=== PATIENT | female | born 1975 | race Caucasian/White ===

== ENCOUNTER 2016-12-09 05:45 | Day surgery (SDC) | payer BC ==
[~2016-12-09] VITALS: Ht 160 cm; Wt 97.5 kg
[~2016-12-09 05:45] MED LIST: ALLEGRA ALLERGY60 MG PO; CITALOPRAM HBR40 MG PO; HYDROCHLOROTHIA25 MG PO; MULTI VITAMIN1 EACH PO; OMEPRAZOLE40 MG PO; PANTOPRAZOLE SO40 MG PO; PERCOCET 7.5-31 EACH PO; PROMETHAZINE12.5 M1 PO; TOPROL XL100 MG PO; VITAMIN D2000 UNI1 PO
[2016-12-09] MEDS ORDERED: LISINOPRIL10 MG PO (06:00)
--- NOTE | 2016-12-09 10:28 | NUR ---
12/09/16 1028 Hakeem Crain JAW HELD OPEN UNTIL 1025 WHEN THE PT WAS MAINTAINING HER OWN AIRWAY.
--- NOTE | 2016-12-09 12:00 | NUR ---
PT TO FLOOR VIA GURNEY. NAUSEOUS WITH MOVEMENT. LARGE EMESIS ON ARRIVAL TO ROOM. GIVEN 4 MG ZOFRAN. VAG PACKING IN PLACE. CONT PULSE OX PLACED. 2 L O2 NC IN PLACE. SATS 98%. PT SETTLED IN BED. SCOPE SITES TO ABD INTACT PT COMPLAINS OF PAIN. UNABLE TO RATE. FALLS ASLEEP IMMEDIATELY. SATS DECREASE TO 84% O2 INCREASED TO 3, 4, THEN 5 L. SATS INCREASE TO 88%. OXYMASK APPLIED. SATS INCREASE TO 94%.
--- NOTE | 2016-12-09 12:26 | NUR ---
DR GERARDO IN TO SEE THE PATIENT AT THIS TIME, PATIENT STATES THAT PAIN IS AT A 8/10, 2MG OF MORPHINE GIVEN IV. PATIENT REMAINS ON 5L OF OXYGEN PER OXYMASK, RT ASKED TO COME IN AND CHECK THE PATIENT FOR A BIPAP.
--- NOTE | 2016-12-09 13:03 | NUR ---
PT SLEEPING IN BED. WAKES BRIEFLY FOR VITALS. FOLLOWS DIRECTIONS, IMMEDIATELY FALLS BACK ASLEEP. RT IN TO APPLY BIPAP.
--- NOTE | 2016-12-09 14:22 | NUR ---
PT RESTING IN BED. WAKES EASILY. BIPAP IN PLACE. SATS 98% ON 32% FIO2. PT COMPLAINS OF PAIN. GIVEN 4 MG MS IV AND SCHEDULED IBUPROFEN WITH CRACKERS AND JELLO. NC IN PLACE WHILE PT EATING. PT VOMITS WATER, JELLO, CRACKERS. GIVEN REGLAN IV. FAMILY AT BEDSIDE. TO CALL IF PT FALLS ASLEEP FOR BIPAP. SATS 99% ON 2 L NC AT THIS TIME. CALL LIGHT IN REACH. ICE CHIPS GIVEN FOR DRY MOUTH. VAG PACK IN PLACE. NO BLEEDING NOTED.
--- NOTE | 2016-12-09 14:37 | NUR ---
PT BACK ON BIPAP FOR NAP. FAMILY REMAINS AT BEDSIDE. PT DENIES NAUSEA AT THIS TIME.
--- NOTE | 2016-12-09 14:57 | NUR ---
PT NAUSEOUS AND LIGHT HEADED. HEAD OF BED LOWERED. BIPAP MASK OFF. NC IN PLACE. MD NOTIFIED OF UPDATE AND REQUEST TO GIVE MORE ZOFRAN RATHER THAN PHENERGAN DUE TO SEDATING EFFECT. ORDER RECIEVED.
--- NOTE | 2016-12-09 16:00 | NUR ---
PT AWAKE VISITING WITH FAMILY. RATES PAIN 4/10. STATES FEELS MUCH BETTER AFTER NAP. OXYMASK IN PLACE AT 3 L. SATS 99%. TITRATED TO 2 L. PT DENIES NAUSEA AT THIS TIME. EATING ICE CHIPS. NO BLEEDING NOTED. CALL LIGHT IN REACH. PT DENIES NEEDS.
--- NOTE | 2016-12-09 17:49 | NUR ---
PT TO FLOOR THIS AM. BIPAP WHEN SLEEPING TO KEEP SATS >90%. SATS IMPROVED THROUGHOUT SHIFT. ON 2 L OXYMASK AT THIS TIME. CONT PULSE OX IN PLACE. VAG PACKING, RUSSO IN PLACE. SCOPE SITES X 3 ON ABD. COVERED WITH BANDAIDS. SMALL AMOUNT DRAINAGE NOTED. NO SIGNIFICANT CHANGE TO DRAINAGE. EMESIS X 2. MEDICATED WITH ZOFRAN X 2, REGLAN X 1. AVOIDED PHENERGAN DUE TO SEDATION LEVEL. PT MUCH MORE ALERT SHIFT PROGRESSED. FAMILY AT BEDSIDE. IV FLUIDS INFUSING. RECIEVED IV MORPHINE X 2. PO PAIN MEDS HELD AT THIS TIME DUE TO NAUSEA. ADVISED PT TO TAKE PO VERY SLOWLY. TOLERATING ICE CHIPS AND SMALL SIPS OF WATER AT THIS TIME.
--- NOTE | 2016-12-09 19:38 | NUR ---
RECIEVED REPORT FROM DAY SHIFT RN. PATIENT IS RESTING IN BED RESTING. PATIENTS DAUGHTER IS AT THE BEDSIDE. PATIENT IS ON 2L VIA OXYMASK. PATIENT DENIES ANY PAIN OR NAUSEA AT THIS TIME. PATIENT DEENIES ANY NEEDS AT THIS TIME. CALL LIGHT IS WITHIN REACH.
--- NOTE | 2016-12-09 20:58 | NUR ---
PATIENT ASSESMENT COMPLETED. PATIENTS EVENING MEDICATIONS GIVEN PER ORDER. PATIENT HAS X3 LAP SITES WITH SCANT DRAINAGE. PATIENT RATES PAIN AT 4/10. PATIENT GIVEN SCHEDULED MOTRIN. PATIENT DENIES ANY FURTHER NEED FOR PAIN MEDICATION. PATIENT HAS RUSSO IN PLACE URINE OUTPUT IS QS. PATIENTS DAUGHTER IS AT BEDISE AND STAYING THE NIGHT. PATIENT DENIES ANY FURTHER NEEDS. CALL LIGHT IS WITHIN REACH.
--- NOTE | 2016-12-09 21:41 | NUR ---
PATIENT GIVEN PRN NAUSEA MEDICATION PER ORDER. PATIENT RATES PAIN NOW AT A 2/10. PATIENT IS REQUESTIN G TO BE PLACED ON THE BIPAP. CALLED RT TO PLACE PATIENT ON THE BIPAP.
--- NOTE | 2016-12-09 22:04 | NUR ---
RT IN THE ROOM. PATIENT PLACED ON BIPAP. PATIENT DENIES ANY FURTHER NEEDS CALL LIGHT IN REACH.
--- NOTE | 2016-12-10 00:33 | NUR ---
PATIENT IS RESTING IN BED WITH EYES CLOSED. PATIENTS IS ON A PULSE OX AND READINGS ARE WNL. PATIENT CONTINUES TO WEAR BIPAP. CALL LIGHT IS WITHIN REACH.
--- NOTE | 2016-12-10 02:20 | NUR ---
PATIENTS VITALS TAKEN AND RECORDED. PATIENT CONTINUES TO WEAR CPAP. PATIENT DENIES ANY PAIN AT THIS TIME. PATIENT DENIES ANY NEEDS CALL LIGHT IN REACH.
--- NOTE | 2016-12-10 04:47 | NUR ---
PATIENTS IV FLUID REPLENISHED. PATIENT DENIES ANY PAIN OR NAUSEA. PATIENT HAS REMOVED CPAP. PATIENT STATED "IT WAS STARTING TO BOTHER ME" PATIENT DENIES ANY FURTHER NEEDS CALL LIGHT IN REACH.
--- NOTE | 2016-12-10 05:59 | NUR ---
PATIENT RESTED WELL THROUGHOUT THE SHIFT. PATIENT WORE CPAP FOR THE MAJORITY OF THE SHIFT. PATIENT IS ON 2L VIA OXYMASK WHEN SLEEPING. PATIENT IS ON A PULSE OX. PATIENT HAS X3 LAP SITES THAT ARE COVERED AND HAVE MINIMAL DRAINAGE. PATIENT ONLY RECIEVED SCHEDULED PAIN MEDICATIONS. PATIENT RECEIVED X1 NAUSEA MEDICATION. PATIEN IS AAOX3 AND USES CALL LIGHT APPRIOPRIATELY.
--- NOTE | 2016-12-10 06:19 | NUR ---
PATIENT GIVEN MORNING MEDICATION PER ORDER. PATIENT RATES PAIN AT A 2/10. PATIENT DENIES ANY NAUSEA. PATIENT IS ON 2L VIA OXYMASK. PULSE OX READINGS ARE WNL. PATIENT DENIES ANY NEEDS AT THIS TIME. CALL LIGHT IS WITHIN REACH.
--- NOTE | 2016-12-10 07:30 | NUR ---
REPORT RECEIVED FROM STAPLE SIDE LASTER RN USING 5 P'S. PT RATES PAIN 4/10. DENIES NEED FOR PAIN MED AT THIS TIME. FAMILY AT BEDSIDE. IV FLUIDS INFUSING WITHOUT DIFFICUTLY. SCDS, KARAN, VAG PACK IN PLACE. SCOPE SITES INTACT. PT DENIES NEEDS. CALL LIGHT IN REACH.
--- NOTE | 2016-12-10 09:05 | NUR ---
PATIENTS RUSSO CATHATER AND PACKING REMOVED AT THIS TIME.
--- NOTE | 2016-12-10 10:30 | NUR ---
PT UP TO VOID 350 ML + INCONTINENT IN BED. 0 RESIDUAL. MD UPDATED. PLAN FOR DC.
--- NOTE | 2016-12-10 10:38 | NUR ---
PT IS SITTING UP IN BED TALKING WITH DOCTOR. PT WAS ABLE TO VOID AND BLADDER SCAN SHOWED NO RESIDULE.
[2016-12-10] MEDS ORDERED: PERCOCET 5-3251 EACH PO (10:47)
[2016-12-10] MEDS ORDERED: IBUPROFEN800 MG PO (10:47)
--- NOTE | 2016-12-10 11:00 | NUR ---
PT PREPARING FOR DC. SL OUT WNL. PT RATES PAIN 2/10 AFTER PREVIOUS PERCOCET. FAMILY AT BEDSIDE. ASSISTING PT TO GET DRESSED. PT TO CALL WHEN READY.
--- NOTE | 2016-12-12 12:43 | OR ---
[facility] [address], [place] [address] Signed DATE OF SERVICE: 12/09/2016 PREOPERATIVE DIAGNOSES: Excessive frequent menstruation with regular cycle, stress urinary incontinence, uterovaginal prolapse complete. POSTOPERATIVE DIAGNOSES: Excessive frequent menstruation with regular cycle, stress urinary incontinence, uterovaginal prolapse complete, probable adenomyosis. PROCEDURE: Total laparoscopic hysterectomy with bilateral salpingectomy and TVT urethropexy and cystoscopy by Dr. Cramer. SURGEON: Dr. Orozco. INFORMATION SECURITY CONSULTANT: Dr. Cramer. ANESTHESIA: General. ESTIMATED BLOOD LOSS: 150 mL. COMPLICATIONS: None. DRAINS: Ross to bladder. PACKING: AVC infused gauze in vagina. DESCRIPTION OF PROCEDURE: The patient was brought to the operating room, placed in supine position. After adequate general anesthesia was obtained, was placed in dorsal lithotomy position, prepped and draped in usual sterile fashion. A Ross catheter was placed in the bladder. Weighted speculum was placed in the vagina and the anterior lip of the cervix grasped with an Allis clamp. Uterine cavity was sounded to 12 cm. The VCare uterine manipulator was inserted into the uterine fundus, the balloon filled with water and the Allis clamp and weighted speculum were removed. Cervical cap slid up the manipulator and around the cervix and the vaginal cuff slid up and tightened in place holding the cervical cap against the cervix. Sterile glove was then placed over the manipulator so this could be maneuvered abdominally. Attention was then drawn to the abdomen. A small infraumbilical skin incision was made with a scalpel after injecting the area with 0.5% plain Marcaine. Subcutaneous tissue was dissected with Metzenbaum scissors and Electronically Signed By: ROD OROZCO MD 12/12/16 1243 PATIENT NAME: RON DIAZ OPERATIVE REPORT DATE OF : 75 PHYSICIAN: ROD OROZCO MD REPORT #: [id number] REPORT IS CONFIDENTIAL AND NOT TO BE RELEASED WITHOUT AUTHORIZATION [facility] [address], [place] [address] Signed the fascia identified, grasped, hemostats elevated and nicked with Metzenbaum scissors and extended in transverse fashion using Metzenbaum scissors. Retention stitches of 0 Vicryl suture placed above and below the incision. Peritoneum was opened with finger dissection. An S retractor was inserted into the incision and spun in 360 d e gree fashion to confirm entry into the abdomen. The Kirsitn cannula and sleeve were then inserted into the abdomen alongside the S retractor, which was then removed. The sleeve was tied in place with 2 retention stitches and the trocar removed. The laparoscope with video attachment entered the abdomen under direct visualization. Carbon dioxide was used as a distending medium. Above findings were noted. A lateral port was placed on the left side just below the level of the umbilicus. The abdominal wall was t r ansilluminated to avoid any vessels. A small skin incision was made after injecting the area with 0.5% Marcaine and then bladed 5 mm trocar and sleeve entered the abdomen under direct visualization. The trocar was removed, then blunt grasper inserted on t h e right side. On the right side, again the lateral incision was made after injecting the area with 0.5% Marcaine and this incision was a little wider and the area was transilluminated to avoid any vessels. A Veress needle with expandable sleeve was then p l aced through the abdominal wall into the abdomen under direct visualization. The Veress needle was removed. Expandable trocar up to a 10 sleeve was placed through the expandable sleeve stretching the fascia. The trocar was removed and an additional distal blunt grasper inserted. The above findings were again noted. The LigaSure [place] bipolar cautery forceps were used for the most of the dissection. The right fallopian tube was cauterized and cut down the length of the tube and then cut across the tube at the proximal end near the uterus and the tube removed through the right port. The utero-ovarian ligament was cauterized in several places and cut, and the upper pedicle including the round ligament was cauterized and cut in several places. Once reaching t he mid portion of the broad ligament, the anterior and posterior leaves of broad ligament were , cauterized, and cut near the uterus and both sides were extended down the uterus and medially to the midline staying within the area of the cervical cap, which could be palpated in the pelvis around the cervix. The uterine vessels were then exposed and these were cauterized in several places and cut again within the cervical cap and the tissue around the cuff anteriorly and posteriorly was cleared off by cauterizing and cutting down to the level of the vaginal mucosa. [place] forceps were then used on the left side, again cutting the fallopian tube free and then down the length of the tube and then cutting across the tube and pulling the tube out. The utero-ovarian ligament was cauterized in several places and then cut, and upper pedicle including round ligament also cauterized in several places and cut. The broad ligament was opened. The anterior and posterior leaves of the broad ligament were identified, again opened, again individually cauterized and cut with incision extending down around the midline combining with the previous dissection on the right. The uterine vessels were exposed and once visualized were cauterized in several places and cut, again staying within the area of the cervical cap. The loose tissue around the cervical cap was also cauterized and cut down to the level of the vaginal mucosa. The uterus was Electronically Signed By: ROD OROZCO MD 12/12/16 1243 PATIENT NAME: RON DIAZ OPERATIVE REPORT DATE OF : 75 PHYSICIAN: ROD OROZCO MD REPORT #: [id number] REPORT IS CONFIDENTIAL AND NOT TO BE RELEASED WITHOUT AUTHORIZATION [facility] [address], [place] [address] Signed somewhat enlarged and boggy, so there was some difficulty visualizing posteriorly a n d there was some scarring on the right uterosacral ligament near the uterus, and with the peritoneum not dropping as far as desired, so this area was cauterized and cut. It was decided to start on the left side with the dissection of the vaginal wall around the cervix. The Sonicision was brought into operating field and the cervical cap palpated and the Sonicision used to cut the vaginal mucosa within the groove because of difficulty seeing posteriorly on the left side. The incision was started anteriorly a nd brought down posteriorly to the midline posterior cup. Care was taken to avoid the bowel with Sonicision blade. The Sonicision was then moved to the right side and cut from posterior to anterior in the groove of the cervical cap removing the cervix from the vagina. Blunt graspers were used to hold the cervix within the cuff, the gas allowed to escape and attention drawn to the vagina. VCare was removed. The cervix seen in the vagina and this was grasped with an Allis clamp and gently pulled down. The uterus noted to be too big to come out of the vaginal opening without extending the incision, so the uterus was grasped on either side with single-tooth tenacula and Villa scissors used to cut down the middle of the uterus until that it was loose enough that the posterior portion of the uterus could be delivered through the opening and the rest of the uterus then easily followed. The uterus was passed off the table. Sterile glove with sponge inside was placed in the vagina to b e able to re-insufflate the abdomen. Attention was then drawn back to the abdomen. Abdomen was reinflated. The entire pelvis was irrigated, suctioned, and examined, noted to have good hemostasis. The Endo Stitch instrument was then brought into operating field and the first stitch placed in the right uterosacral ligament and into the vaginal mucosa pulled through and then the Endo Stitch then placed through the loop in the end of the doris suture and tightened. Anterior vaginal mucosa at the right angle was then stitched starting in the vaginal mucosa and grasping the vaginal wall, trying to stay away from the bladder by not going too deep. This stitch was placed and the doris suture tightened. The posterior edge was again stitched through the vaginal mucosa anteriorly and then pulled tight and then the anterior mucosa grasped, stitched, and pulled tight. This was continued all the way across to the left uterosacral ligament. At the left uterosacral ligament, care was taken to not go any wider than the uterosacral ligament and to stay shal l ow to avoid the ureter, anteriorly the tissue was grasped in the area of dissection, but not any further back to avoid the bladder. After reaching the left angle, suturing was carried back toward the middle with 2 additional stitches to help lock suture in place, this was more superficial, but through both layers at the same time. Laparoscopic sutures were then used to cut the stitch right against the vaginal mucosa and the needle removed. Entire pelvis was irrigated, suctioned, examined, and noted to have good hemostasis. At this point, all instruments were removed from the abdomen, the gas allowed to escape, and all 3 sleeves removed. The infraumbilical fascia was closed using running stitch of 0 Vicryl suture. The 2 retention stitches were tied Electronically Signed By: ROD OROZCO MD 12/12/16 1243 PATIENT NAME: RON DIAZ OPERATIVE REPORT DATE OF : 75 PHYSICIAN: ROD OROZCO MD REPORT #: [id number] REPORT IS CONFIDENTIAL AND NOT TO BE RELEASED WITHOUT AUTHORIZATION [facility] [address], [place] [address] Signed together for further support of the fascia. The right incision was palpated and noted to have a small fascial defect and no need for stitch, so the 3 skin incisions were closed using 4-0 Vicryl in subcuticular stitches . Cystoscopy was then done by taking the Ross out, placing the 70-degree cystoscope carefully in the urethra and while using sterile water as distending medium, the cystoscope was carefully introduced through the urethra into the bladder. Bladder was partially filled with water. The dome of the bladder and remaining part of the bladder showed no evidence of trauma or stitches or lacerations. Both ureters were identified and urine was noted to come from both orifices without difficulty. The cystoscope was removed. The bladder drained a nd the sleeve then removed from the bladder, Ross catheter placed back into the bladder. The remainder part of the surgery was done by Dr. Cramer. Please see his dictation for the rest of the procedure. At the end of the procedures, the vaginal cuff seem well supported and there was no real cystocele present. The rectocele appeared small and because she had no symptoms with this, it was decided that the posterior repair was not necessary at this time, so the vagina was packed with AVC gauze. PREOPERATIVE FINDINGS: Cervix thick, closed. Uterus upper limits normal size, mobile. There was grade 2 to 3 cystourethrocele and grade 2 rectocele. The uterus appeared enlarged and boggy. The anterior cul-de-sac was free of any endometriosis or adhesions. The posterior cul-de-sac was free of endometriosis or adhesions, but was rather narrow. The left tube was normal in length and normal-appearing fimbriated end and no adhesions. The left ovary is normal size and shape without any evidence of endometriosis or adhesions. The right tube was normal in length and normal-appearing fimbriated end and no adhesions. The right ovary is normal in size and shape without any evidence of endometriosis or adhesions. The rest of the pelvis was free of any masses or adhesions. MD KELY Bishop/Modl /[id number] Electronically Signed By: ROD OROZCO MD 12/12/16 1243 PATIENT NAME: RON DIAZ OPERATIVE REPORT DATE OF : 75 PHYSICIAN: ROD OROZCO MD REPORT #: [id number] REPORT IS CONFIDENTIAL AND NOT TO BE RELEASED WITHOUT AUTHORIZATION [address] [address] Signed cc: Hakeem Beth Electronically Signed By: ROD OROZCO MD 12/12/16 1243 PATIENT NAME: RON DIAZ OPERATIVE REPORT DATE OF : 75 PHYSICIAN: ROD OROZCO MD REPORT #: [id number] REPORT IS CONFIDENTIAL AND NOT TO BE RELEASED WITHOUT AUTHORIZATION
--- NOTE | 2017-01-19 12:21 | OR ---
[facility] [address] [facility] [place], [place] [address] Signed DATE OF SERVICE: 12/09/2016 PREOPERATIVE DIAGNOSES: 1. Excessive frequent menstruation with regular cycle. 2. Stress urinary incontinence. 3. Uterovaginal prolapse. POSTOPERATIVE DIAGNOSES: 1. Excessive frequent menstruation with regular cycle. 2. Stress urinary incontinence. 3. Uterovaginal prolapse. 4. Probable adenomyosis. PROCEDURES PERFORMED: 1. Total laparoscopic hysterectomy. 2. Bilateral salpingectomy. 3. Cystoscopy. 4. Tension-free vaginal tape urethropexy. SURGEON: Ronn Orozco MD. STATION DETECTIVE: Sara Cramer DO. ANESTHESIA: General. ESTIMATED BLOOD LOSS: 150 mL. SPECIMENS: Uterus, bilateral fallopian tubes, vagina. FINDINGS: On cystourethroscopy, normal urethra, normal bladder dome, bilateral ureteral jets, and optimal placement of TVT-Exact mesh. COMPLICATIONS: None. INDICATIONS: Ms. Diaz is a pleasant 41-year-old female, who presents with abnormal uterine bleeding and stress urinary incontinence. The patient received a total laparoscopic hysterectomy, bilateral salpingectomy by Dr. Orozco with myself assisting. Please see Dr. Orozco's note for operative report prior to the TVT-Exact. After completion of the Electronically Signed By: SARA CRAMER DO 01/19/17 1221 PATIENT NAME: RON DIAZ OPERATIVE REPORT DATE OF : 75 PHYSICIAN: SARA CRAMER DO REPORT #: [id number] REPORT IS CONFIDENTIAL AND NOT TO BE RELEASED WITHOUT AUTHORIZATION [facility] [address], [place] [address] Signed hysterectomy, attention was turned to the placem ent of a midurethral sling. The Ross catheter was felt and the bulb was palpated at the neck of the bladder. An Allis clamp was placed at this location second, approximately 1 cm away from the urethral meatus. The vaginal epithelium was infiltrated with 0.25% Marcaine with epinephrine. This was then incised with a surgical scalpel. Vaginal epithelium was then dissected using Metzenbaum scissors creating a channel aiming toward the right shoulder just under the pubic symphysis. The process was repeated on the left side without complication. Some bleeding was noted from the right channel and vaginal epithelium was made hemostatic with Bovie electrocautery. Some bleeding was noted to continue from slightly higher up. A TVT-Exact was selected and trocar was passed in the previously created channel on the right to just below the pubic symphysis aiming toward the ipsilateral shoulder. As the tip passed the pubic symphysis, the surgeon's hand was brought, was dropped and the tip of the trocar was brought out through previously marked exit points approximately 2.5 cm lateral to the midline. The skin was incised and the trocar was passed through the skin. The trocar was then clamped with hemostats and the process was repeated on the left side without complication. Careful attention was paid to deviate the bladder away from the path of the trocar on each side using a blunt sound through the Ross catheter. The Ross catheter was then removed after the trocars were passed and cystourethroscopy was performed. The urethra was examined and found to be intact without lesion. The bladder dome was evaluated and found to be intact without puncture and the trocar was noted in optimal position bilaterally. Bilateral ureteral jets were noted and the bladder was drained. The Ross catheter reinserted. The trocars were then pulled through the skin and the mesh brought through the skin as well. A right angle clamp was used to ensure initial positioning of the mid urethral sling without tension. The trocars were removed using scissors and the plastic sheaths were removed with hemostat. The mesh underwent final tensioning again ensuring that no tension was placed on the urethra using the right angle retractor. The mesh was then cut at the skin edge and the skin was elevated to drop the mesh below the skin surface. Trocar sites were repaired using Dermabond. Small amount of oozing was noted again from the area of dissection on the right. The dissection tunnel was held with pressure and FloSeal was prepared. FloSeal was inserted into the area and pressure was held for 5 minutes. The amount of oozing was significantly improved and the vaginal epithelium was reapproximated using 2-0 Vicryl in a running locked manner. The vagina was then packed with Kerlix. The Ross catheter was in place and the patient was taken to the PACU in good and stable condition. Please see Dr. Orozco's dictation for further detail. Sara Cramer DO JDW/Modl Electronically Signed By: SARA CRAMER DO 01/19/17 1221 PATIENT NAME: RON DIAZ OPERATIVE REPORT DATE OF : 75 PHYSICIAN: SARA CRAMER DO REPORT #: [id number] REPORT IS CONFIDENTIAL AND NOT TO BE RELEASED WITHOUT AUTHORIZATION [address] [place], [place] [address] Signed /[id number] Electronically Signed By: SARA CRAMER DO 01/19/17 1221 PATIENT NAME: RON DIAZ OPERATIVE REPORT DATE OF : 75 PHYSICIAN: SARA CRAMER DO REPORT #: [id number] REPORT IS CONFIDENTIAL AND NOT TO BE RELEASED WITHOUT AUTHORIZATION
== END 2016-12-10 11:30 | disposition home or self-care (01) ==
LOC: DS 05:45 → EDSTATUS 06:45 → MS 06:45 → DS 12-10 11:30
PROVIDERS: General Practice
PROC: 0UT94ZZ Resection of Uterus, Percutaneous Endoscopic Approach (ICD-10-PCS; principal; 2016-12-09 06:45)
PROC: 0UTC4ZZ Resection of Cervix, Percutaneous Endoscopic Approach (ICD-10-PCS; 2016-12-09 06:45)
PROC: 0UB74ZZ Excision of Bilateral Fallopian Tubes, Percutaneous Endoscopic Approach (ICD-10-PCS; 2016-12-09 06:45)
PROC: 0TSD0ZZ Reposition Urethra, Open Approach (ICD-10-PCS; 2016-12-09 06:45)
DX: N80.0 Endometriosis of uterus (principal); N39.3 Stress incontinence (female) (male); N83.8 Other noninflammatory disorders of ovary, fallopian tube and broad ligament; N72 Inflammatory disease of cervix uteri; N81.4 Uterovaginal prolapse, unspecified; I10 Essential (primary) hypertension; F41.9 Anxiety disorder, unspecified; K21.9 Gastro-esophageal reflux disease without esophagitis; E66.9 Obesity, unspecified; Z98.890 Other specified postprocedural states; Z82.49 Family history of ischemic heart disease and other diseases of the circulatory system
CPT/HCPCS: 00944; 36415; 85027; 94660; 94762; C1771; J0690; J1170; J1644; J1885; J2270; J2405; J2550; J2704; J2710; J2765; J3010; J7120